=== PATIENT | male | born 1975 | race American Indian/Alaskan Native ===

== ENCOUNTER 2018-05-11 13:55 | Emergency (ER) | payer SELFPAY ==
[2018-05-11 14:22] VITALS: BMI 29.0
[2018-05-11] MEDS ORDERED: Sodium Chloride 0.9% 1,000 ML IV STA (14:24)
[2018-05-11 14:26] VITALS: TEMP 98
--- NOTE | 2018-05-11 14:50 | RAD ---
HISTORY: SOB COMPARISON: No prior. FINDINGS: LUNGS: No active pulmonary disease. PLEURA: No significant pleural effusion identified, no pneumothorax apparent. CARDIOVASCULAR: Normal. OSSEOUS STRUCTURES: No significant abnormalities. VISUALIZED UPPER ABDOMEN: Normal. OTHER FINDINGS: None. IMPRESSION: No active disease.
[2018-05-11 14:58] LABS: BASO # 0.02 K/mm3 (0.0-2.0); BASO % 0.3 % (0.0-3.0); EOS # 0.1 (0.0-0.7); EOS % 1.4 % (1.5-5.0); GRAN # 3.83 (1.4-6.5); GRAN % 58.9 % (50.0-68.0); LYMPH # 2.1 (1.2-3.4); LYMPH % 31.7 % (22.0-35.0); MEAN CELL VOLUME 69.8 fl (80.0-105.0); MEAN CORPUSCULAR HEMOGLOBIN 22.3 pg (25.0-35.0); MEAN PLATELET VOLUME 9.8 fl (7.0-11.0); MONO # 0.5 (0.1-0.6); MONO % 7.7 % (1.0-6.0); RBC 5.82 10^6/uL (3.5-6.1); RED CELL DISTRIBUTION WIDTH 15.7 % (11.5-14.5); WHITE BLOOD COUNT 6.5 10^3/ul (4.5-11.0)
[2018-05-11 15:09] LABS: ALB/GLOB RATIO 1.5 (1.1-1.8); ALBUMIN 4.3 g/dL (3.0-4.8); ALT/SGPT 46 U/L (7-56); AST/SGOT 27 U/L (17-59); BLOOD UREA NITROGEN 18 mg/dL (7-21); GFR AFRICAN-AMERICAN > 60; GFR NON-AFRICAN AMERICAN > 60
[2018-05-11 15:14] LABS: INR 1.03 (0.93-1.08); PARTIAL THROMBOPLASTIN TIME 26.5 Seconds (25.1-36.5); PROTHROMBIN TIME 11.7 SECONDS (9.4-12.5)
[2018-05-11 15:15] LABS: D DIMER < 200 ng/mL (0-243)
[2018-05-11 15:21] LABS: B-TYPE NATRIURETIC PEPTIDE 17.6 pg/mL (0-450); TROPONIN I < 0.01 ng/mL
[2018-05-11 15:27] VITALS: RESP 18
[2018-05-11 16:03] LABS: VENOUS BLOOD GAS BASE EXCESS 0.6 mmol/L (0.0-2.0); VENOUS BLOOD GAS PO2 172 mm/Hg (30-55); VENOUS BLOOD PH 7.36 (7.32-7.43)
[2018-05-11 16:18] LABS: PH,URINE 6.5 (4.7-8.0); URINE BILIRUBIN NEGATIVE (NEGATIVE); URINE BLOOD TRACE-INTACT (NEGATIVE); URINE GLUCOSE (UA) NEGATIVE (NEGATIVE); URINE LEUKOCYTE ESTERASE SMALL Leu/uL (NEGATIVE); URINE PROTEIN NEGATIVE mg/dL (<30 mg/dL); URINE UROBILINOGEN 0.2 E.U./dL (<1 E.U./dL)
[2018-05-11 16:20] LABS: URINE COLOR YELLOW (YELLOW)
[2018-05-11 16:29] LABS: URINE APPEARANCE SL CLOUDY (CLEAR); URINE BACTERIA MOD (NEG); URINE WBC 25 - 30 /hpf (0-6)
[2018-05-11 17:13] LABS: BARBITURATES, UR NEGATIVE (NEGATIVE); BENZODIAZEPINES, UR NEGATIVE (NEGATIVE); OPIATES, UR NEGATIVE (NEGATIVE); PHENCYCLIDINE, UR NEGATIVE (NEGATIVE)
[2018-05-11 17:14] VITALS: BP 139/84; PULSE 73
--- NOTE | 2018-05-11 17:20 | ED PDOC ---
Arrival/HPI - General Chief Complaint: Shortness Of Breath Time Seen by Provider: 05/11/18 14:22 Historian: Patient - History of Present Illness Narrative History of Present Illness (Text): 05/11/18 17:17 42yo male with Past medical history of hypertension present with complaint of shortness of breath s/p smoking Marijuana. Notes that he smokes Marijuana regularly, but it caused him to feel shortness of breath and feeling as if he is "on the wind" this time. Denies previous history. He denies chest pain, nausea, vomiting, diaphoresis, LE edema, calf pain, visual changes, any other complaint. Past Medical History - Provider Review Nursing Documentation Reviewed: Yes - Infectious Disease Hx of Infectious Diseases: None - Tetanus Immunization Tetanus Immunization: Unknown - Past Medical History Past Medical History: No Previous - Cardiac Hx Hypertension: Yes - Psychiatric Hx Depression: No Hx Emotional Abuse: No Hx Physical Abuse: No Hx Substance Use: No - Surgical History Hx Orthopedic Surgery: Yes (hand) - Anesthesia Hx Anesthesia: No Hx Anesthesia Reactions: No Hx Malignant Hyperthermia: No - Suicidal Assessment Feels Threatened In Home Enviroment: No Family/Social History - Physician Review Nursing Documentation Reviewed: Yes Family/Social History: Unknown Family HX Smoking Status: Never Smoked Hx Alcohol Use: Yes Frequency of alcohol use: Daily Hx Substance Use: No Allergies/Home Meds Allergies/Adverse Reactions: Allergies No Known Allergies Allergy (Verified 02/05/14 22:28) Home Medications: Home Meds Medication Instructions Recorded Confirmed Omeprazole [Prilosec] 20 mg PO DAILY 02/05/14 02/05/14 Ondansetron ODT [Zofran ODT] 4 mg PO Q6 PRN 02/05/14 02/05/14 Review of Systems - Physician Review All systems were reviewed & negative as marked: Yes - Review of Systems Constitutional: Normal Eyes: Normal ENT: Normal Respiratory: SOB. absent: Cough, Sputum, Wheezing Cardiovascular: Normal Gastrointestinal: Normal Genitourinary Male: Normal Musculoskeletal: Normal Skin: Normal Neurological: Normal Endocrine: Normal Hemo/Lymphatic: Normal Psychiatric: Normal Physical Exam Vital Signs Reviewed: Yes Vital Signs Temp Pulse Resp BP Pulse Ox 05/11/18 17:44 98.0 F 73 18 139/84 100 05/11/18 17:14 73 18 139/84 99 05/11/18 16:43 65 18 150/92 H 98 05/11/18 15:26 79 18 142/86 98 05/11/18 14:24 98.0 F 84 17 146/99 H 98 05/11/18 14:22 98.4 F 82 18 164/99 H 100 Temperature: Afebrile Blood Pressure: Normal Pulse: Regular Respiratory Rate: Normal Appearance: Positive for: Well-Appearing, Non-Toxic, Comfortable Pain Distress: None Mental Status: Positive for: Alert and Oriented X 3 - Systems Exam Head: Present: Atraumatic, Normocephalic Pupils: Present: PERRL Extroacular Muscles: Present: EOMI Conjunctiva: Present: Normal Mouth: Present: Moist Mucous Membranes Neck: Present: Normal Range of Motion Respiratory/Chest: Present: Clear to Auscultation, Good Air Exchange. No: Respiratory Distress, Accessory Muscle Use, Wheezes, Decreased Breath Sounds, Rales, Retracting, Rhonchi, Tachypneic Cardiovascular: Present: Regular Rate and Rhythm, Normal S1, S2. No: Murmurs Abdomen: No: Tenderness, Distention, Peritoneal Signs Back: Present: Normal Inspection Upper Extremity: Present: Normal Inspection. No: Cyanosis, Edema Lower Extremity: Present: Normal Inspection. No: Edema Neurological: Present: GCS=15, CN II-XII Intact, Speech Normal Skin: Present: Warm, Dry, Normal Color. No: Rashes Psychiatric: Present: Alert, Oriented x 3, Normal Insight, Normal Concentration Medical Decision Making ED Course and Treatment: 05/11/18 17:23 Pt presented for stated history. He was hydrated nd observed in Emergency department. His labs was unremarkable. He noted that his symptoms started aft4er taking Marijuana. UDS was + for marijuana. He was advised of the possibility of taking Marijuana that is laced with something else. He notes that his symptoms resolved while in Emergency department and requested to be DC home. 05/12/18 01:21EKG NSR @83bpm NSTEMI - Lab Interpretations Lab Results: 05/11/18 14:40 05/11/18 14:40 Lab Results 05/11/18 16:14: Urine Opiates Screen Negative, Urine Methadone Screen Negative, Ur Barbiturates Screen Negative, Ur Phencyclidine Scrn Negative, Ur Amphetamines Screen Negative, U Benzodiazepines Scrn Negative, U Oth Cocaine Metabols Negative, U Cannabinoids Screen Positive H 05/11/18 16:14: Urine Color Yellow, Urine Appearance Sl cloudy, Urine pH 6.5, Ur Specific [place] 1.010, Urine Protein Negative, Urine Glucose (UA) Negative, Urine Ketones Negative, Urine Blood Trace-intact H, Urine Nitrate Negative, Urine Bilirubin Negative, Urine Urobilinogen 0.2, Ur Leukocyte Esterase Small H , Urine RBC 2 - 5, Urine WBC 25 - 30, Ur Epithelial Cells 6 - 8, Urine Bacteria Mod 05/11/18 15:30: pO2 172 H, VBG pH 7.36, VBG pCO2 47.0, VBG HCO3 26.6, VBG Total CO2 28.0, VBG O2 Sat (Calc) 99.7 H, VBG Base Excess 0.6, VBG Potassium 3.7, Glucose 113 H, Lactate 1.4, FiO2 21.0, Sodium 139.0, Chloride 109.0 H, Venous Blood Potassium 3.7 05/11/18 14:40: Sodium 142, Potassium 3.8, Chloride 105, Carbon Dioxide 26, Anion Gap 16, BUN 18, Creatinine 1.1, Est GFR ( Amer) > 60, Est GFR (Non- Af Amer) > 60, Random Glucose 131 H, Calcium 9.0, Magnesium 1.8, Total Bilirubin 0.4, AST 27, ALT 46, Alkaline Phosphatase 55, Lactate Dehydrogenase 393, Total Creatine Kinase 147, Troponin I < 0.01, NT-Pro-B Natriuret Pep 17.6, Total Protein 7.1, Albumin 4.3, Globulin 2.8, Albumin/Globulin Ratio 1.5 05/11/18 14:40: PT 11.7, INR 1.03, APTT 26.5, D-Dimer, Quantitative < 200 05/11/18 14:40: WBC 6.5, RBC 5.82, Hgb 13.0 L, Hct 40.6 L, MCV 69.8 L, MCH 22.3 L, MCHC 32.0, RDW 15.7 H, Plt Count 222, MPV 9.8, Gran % 58.9, Lymph % (Auto) 31.7, [place] % (Auto) 7.7 H, Eos % (Auto) 1.4 L, Baso % (Auto) 0.3, Gran # 3.83, Lymph # (Auto) 2.1, [place] # (Auto) 0.5, Eos # (Auto) 0.1, Baso # (Auto) 0.02 - RAD Interpretation Radiology Orders: 05/11/18 14:23 CHEST PORTABLE [RAD] Stat - Medication Orders Current Medication Orders: Discontinued Medications Sodium Chloride (Sodium Chloride 0.9%) 1,000 mls @ 999 mls/hr IV .Q1H1M STA Stop: 05/11/18 15:24 Last Admin: 05/11/18 14:28 Dose: 999 mls/hr eMAR Start Stop Document 05/11/18 14:28 EQ (Rec: 05/11/18 14:28 EQ [id number]) Intravenous Solution Start Date 05/11/18 Start Time 14:28 Disposition/Present on Arrival - Present on Arrival Any Indicators Present on Arrival: No History of DVT/PE: No History of Uncontrolled Diabetes: No Urinary Catheter: No History of Decub. Ulcer: No History Surgical Site Infection Following: None - Disposition Have Diagnosis and Disposition been Completed?: Yes Diagnosis: Substance abuse, SOB (shortness of breath) Disposition: HOME/ ROUTINE Disposition Time: 17:25 Patient Plan: Discharge Condition: STABLE Discharge Instructions (ExitCare): Shortness of Breath (Dyspnea) (DC), Drug Abuse Treatment Additional Instructions: Follow up with your doctor Stop using drug Return to Emergency department for any new symptoms Referrals: [facility] at [facility] – [place], [place] [Outside] - Follow up with primary Forms: [employer] ([employer])
[2018-05-11 17:45] VITALS: O2SAT 100
--- NOTE | 2018-05-12 23:56 | CARD ---
APPROVED REPORT EKG Measurement Heart [id number] <Conclusion> Normal sinus rhythm Possible Left atrial enlargement Borderline ECG
== END 2018-05-11 18:01 | disposition home or self-care (01) ==
LOC: ED 13:55
DX: F19.10 Other psychoactive substance abuse, uncomplicated (principal); R06.02 Shortness of breath; I10 Essential (primary) hypertension
CPT/HCPCS: 71045; 80053; 81001; 82550; 82803; 83615; 83735; 83880; 84484; 85025; 85378; 85610; 85730; 87086; 93005; 99284; G0480; J7030